=== PATIENT | female | born 1960 | race Caucasian/White ===

== ENCOUNTER → 2017-01-10 | Outpatient (CLI) | payer OTHER ==
--- NOTE | 2017-01-10 16:08 | RADRPT ---
PROCEDURE: XR Right hip and pelvis. CLINICAL INDICATION: Right hip pain. Pelvic pain. TECHNIQUE: Two views. Frontal pelvis and lateral right hip. COMPARISON: No prior studies are available for comparison. FINDINGS: There is no fracture or dislocation. The soft tissues are normal. There are mild degenerative changes of both hips with osteophytes noted. There is no joint space narrowing. There is no lytic or blastic lesion. The sacroiliac joints are grossly normal. IMPRESSION: 1. Mild degenerative changes of both hips. 2. Otherwise unremarkable study. RPTAT: QQ .Hammad Lange MD, MD Date Time Electronically viewed and signed by .Hammad Lange MD, MD on 01/10/2017 16:07 .R/
--- NOTE | 2017-01-11 00:44 | HKNOTE ---
DATE OF SERVICE: 01/10/2017 MAIN COMPLAINT: Pain in the right hip. HISTORY OF MAIN COMPLAINT: Patient is a 56-year-old female who complains of pain in her right hip w hich she has had now in one way or another for about 7 years. She has had chronic bursitis of the right hip which is being treated by relatively frequent cortison e injections. Her previous orthopedic surgeon . The patient indicates that he had a different technique for injecting the bursitis in that he injected multiple tender spots rather than her [facility] orthopedic surgeon who only injects one spot. In the past few months the patient developed a separate problem and that is pain in the right groin. She gets pain simultaneously in the right buttocks and over the greater trochanter. She recently had a physical therapist treating her with massage and other modalities. The patient had an MRI scan of the lumbar spine a few months ago. She did not bring the results wit h her, but she states "I have a number of disks." PRESENT COMPLAINTS: The patient's right hip pain currently is mostly in the groin. Pain is aggrava sharon by going up a slope. She has a great deal of difficulty going up or down stairs. She has to do stairs one at a time, leading with the unaffected leg. That pain is aggravated by walking, weightbe aring and stair climbing. The patient gets spasms in the lateral aspect of the right leg. It is di fficult for her to get in the car. She has to lift her leg with her hands. She states that she has "cutting down" on walking in the past 2 weeks and has helps. Normally she i s able to walk 1-1/2 months miles at a time. She gets night pain and it keeps her awake when is "real bad." She takes Percocet on those occasion s. She also tried tramadol which was of no use. She, as noted above, continues to take Percocet and she has also tried Advil. Icing seems to help. Patient does occasionally get pain in the lower back. She had never had an MRI scan of the spine. She does not get numbness or tingling in her legs. The patient limps most of the time. She does not have a shoe lift. It is difficult for her to clip her toenails or tie her shoelaces on the right side. SPORTING ACTIVITIES: She used to enjoy doing cardio exercises but she is now no longer able to do s o. PAST ORTHOPEDIC HISTORY PREVIOUS ORTHOPEDIC OPERATIONS: None. PRIOR CORTISONE INTAKE: "Off and on for the last 7 years." ALCOHOL INTAKE: Perhaps a glass of wine a day. OTHER JOINT PROBLEMS: None. BLOOD TESTS FOR ARTHRITIS: None. 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 PAST MEDICAL HISTORY: Negative. PAST SURGICAL HISTORY: 1. Sinus surgery, . 2. Gallbladder surgery. 3. Hysterectomy 2013. 4. section 1996. DRUG ALLERGIES 1. PENICILLIN. 2. SULFA. MEDICATIONS: 1. Vitamin B6. 2. Vitamin D. 3. Fiber. 4. Probiotics. 5. Zyrtec for hayfever. 6. Nasacort for hayfever. 7. Hydrocortisone 2.5 mg as needed (? for what). 8. Voltaren 1% applied to the skin as needed. 9. Percocet 7.5/325 1-1/2 taken as needed. 10. Valtrex 500 mg 1 a day for blisters. FAMILY HISTORY: Father had skin cancer and a pacemaker. Mother had cancer of the uterus. Actually has been in remission for 4 years. SYSTEMS REVIEW: Muscle jerking in the right leg, varicose veins. Otherwise, entirely negative. HABITS: The patient was a "social smoker" for 20 years. She stopped completely in summer 2014. Alc ohol intake: 1 glass of wine a day before dinner. PHYSICAL EXAMINATION GENERAL: The patient is an extremely youthful, fit looking, delightful 56-year-old female. She loo ks much younger than her stated age. VITAL SIGNS: Height 5 feet 4, weight 158 pounds, blood pressure 120/65, temperature 99.0. GAIT: Patient walks without a walking aid. Her gait is normal. BACK: Dynamic pain assessment reveals a pain free range of motion in flexion, extension, lateral be nding, and rotation. Inspection of the spine reveals no list. There is no lumbar paraspinal m uscle spasm. The pelvis is level. Facet stress test is negative bilaterally. Palpation of the spine demonstrates no tenderness of the spinous processes, facet joints, sacroiliac joint, sciatic notch, or posterior thigh. NEUROLOGIC: Motor examination reveals no muscle deficit in the lower extremities. Deep tendon refle xes in the lower extremities: Right knee jerk positive, left knee jerk positive, right ankle jerk n egative, left ankle jerk positive. Straight leg raising is negative bilaterally at 95 degrees. Laseg ue and BECKA tests are negative. RIGHT HIP: The right hip has a full range of motion, but there is pain in her groin at all limits of motion including flexion. The pain is severe tenderness over her right hip over the greater trochan teric area. RIGHT KNEE: The right knee shows normal alignment. Active and passive extension is 0 degrees. Activ e and passive flexion is 135 degrees. The medial and lateral collateral ligaments and cruciate ligam ents are intact. Ady test is negative. There is no effusion, tenderness, scarring, crepitus, or cysts. The patella tracks normally. There is no tenderness on the articular surface of the patella o r in the patellar groove. The Q angle is normal. LEFT KNEE: The left knee shows normal alignment. Active and passive extension is 0 degrees. Active and passive flexion is 135 degrees. The medial and lateral collateral ligaments and cruciate ligamen ts are intact. Ady test is negative. There is no effusion, tenderness, scarring, crepitus, or cy sts. The patella tracks normally. There is no tenderness on the articular surface of the patella or in the patellar groove. The Q angle is normal. IMAGING: Plain x-rays of her pelvis and hips obtained today are entirely normal. DIAGNOSES 1. Trochanteric bursitis of the right hip. 2. Possible pathology of the right hip joint. 3. Status post gallbladder removal and hysterectomy, and sinus surgery. 4. ALLERGIC TO PENICILLIN AND SULFA. IMAGING: Plain x-rays of the pelvis and hips obtained at the [facility] today we re reviewed. These are completely normal. The sacroiliac joints are normal, the pelvis are normal and a visible lumbar spine is normal. Imaging of the lower back and right hip obtained on 03/08/[address] Dias as shyann hodges "finding suggestive of a low-grade muscular strain injury involving the right distal gluteus mediu s minimus tendon as described. Findings suggestive of a low-grade muscular strain injury involving the right distal gluteus medius, minimus tendon as described above. Increased fluid signal in the right greater trochanteric soft t issues which could be seen in trochanteric bursitis in the appropriate clinical setting. DISCUSSION: A 56-year-old female who has had chronic pain in her right hip. She has a long, at [address] st a 7 year history of trochanteric bursitis. Lately, she developed pain in her right groin. Plain x-rays of her right hip and pelvis were reviewed. Both hip joints appear to be normal. The sacroili ac joints normal. Pubic symphysis normal. An MRI scan of the right hip obtained on 12/16/[address] Mckenzie as showing "findings suggest a low grade muscular strain injury involving the right distal gluteus medius minimus tendon . Increased fluid seen in the right greater trochanteric fossa, which could clearly be seen intertr ochanteric bursitis in the appropriate clinical setting." DISCUSSION: The patient has had a 7 year history of pain in her right hip. In all this time it was diagnosed as trochanteric bursitis. Recently she developed pain in the right groin without any recent injury. Clinical evaluation suggests that there might be a source of pain from the right hip joint as well a s from the trochanteric bursa. MANAGEMENT: Under sterile conditions, she was injected with 2 mL of 2% lidocaine into the right hip joint. Within 10 minutes this totally eliminated pain in her right groin from any range of motion in the right hip. She continued, of course, to have marked pain in the trochanteric bursa area. MANAGEMENT: 1. Under sterile conditions, the patient was given injection of 2 mL of Kenalog and 6 mL of 2% lido clark into the trochanteric bursa and along the iliotibial band. 2. She is being referred for A new MRI scan of her right hip since the last one was obtained almost a year ago. Patient will be called with the results of the new MRI. Dictated By: RADHA NAVAS/ROBIN Conf#: [id number] DID#: [id number]
== END | disposition home or self-care (01) ==
LOC: HKI 13:43
DX: M70.61 Trochanteric bursitis, right hip (principal); M25.551 Pain in right hip; Z88.0 Allergy status to penicillin; Z88.2 Allergy status to sulfonamides; Z90.710 Acquired absence of both cervix and uterus
CPT/HCPCS: 20610; 73502; G0463; J3301